=== PATIENT | female | born 2000 | race Two or more races ===

== ENCOUNTER 2024-01-27 18:05 | Inpatient (IN) | payer MEDICAID, OTHER ==
[~2024-01-27] VITALS: Ht 160 cm; Wt 56.7 kg
[2024-01-27 18:59] LABS: Basophils # (auto) 0 10 ^3/uL (0-0.2); Basophils % (auto) 0.7 % (0.0-2.0); Eosinophils # (auto) 0.1 10 ^3/uL (0-0.8); Hematocrit 40.4 % (36.0-46.0); Hemoglobin 13.6 g/dL (12.2-16.2); Lymphocytes # (auto) 2.7 10 ^3/uL (0.4-5.4); Lymphocytes % (auto) 44.1 % (10.0-50.0); Mean Corpuscular Hemoglobin 31.6 pg (28.0-32.0); Mean Corpuscular Hgb Conc. 33.7 g/dL (32.0-36.0); Mean Corpuscular Volume 93.8 fL (80.0-100.0); Monocytes # (auto) 0.4 10 ^3/uL (0-1.3); Monocytes % (auto) 6.5 % (0.0-12.0); Neutrophils # (auto) 2.9 10 ^3/uL (1.6-8.6); Neutrophils % (auto) 47.7 % (37.0-80.0); Platelet Count (auto) 245 10^3/uL (140-450); Red Blood Cells 4.31 10^6/uL (4.0-5.20); White Blood Cell 6.1 10^3/uL (4.4-10.8)
[2024-01-27 19:29] LABS: Chloride 108 mmol/L (98-107); Potassium 3.6 mmol/L (3.5-5.1); Sodium 139 mmol/L (136-145)
[2024-01-27 19:31] LABS: Anion Gap 8 (5-15); Calcium 9.8 mg/dL (8.7-10.4); Carbon Dioxide 23 mmol/L (20-31)
[2024-01-27 19:36] LABS: BUN/Creatinine Ratio 12.5 (10.0-20.0); Blood Urea Nitrogen 10 mg/dL (9-23); Glucose 93 mg/dL (74-106)
[2024-01-27 23:00] LABS: Urine Bacteria None Seen /hpf (None Seen)
[2024-01-27 23:13] LABS: Urine Blood Negative /uL (Negative); Urine Clarity Clear (Clear); Urine Color Light-Yellow (Yellow); Urine Mucus FEW (None Seen); Urine Protein, UAD Negative (Negative); Urine Specific Gravity 1.014 (1.001-1.035); Urine Urobilinogen Normal (Negative); Urine WBC 7 /hpf (0 - 5); Urine pH 5.5 (5.0-9.0)
[2024-01-28 07:06] LABS: Alanine Aminotransferase 11 U/L (7-40); Alkaline Phosphatase 55 U/L (46-116); Anion Gap 8 (5-15); BUN/Creatinine Ratio 15.2 (10.0-20.0); Blood Urea Nitrogen 12 mg/dL (9-23); Calcium 9.7 mg/dL (8.7-10.4); Carbon Dioxide 26 mmol/L (20-31); Chloride 109 mmol/L (98-107); Glucose 90 mg/dL (74-106); Sodium 143 mmol/L (136-145)
[2024-01-28 07:07] LABS: Albumin 4.3 g/dL (3.2-4.8); Aspartate Aminotransferase 14 U/L (13-40)
[2024-01-28 07:08] LABS: Bilirubin, Total 0.7 mg/dL (0.2-1.0); Total Protein 6.7 g/dL (5.7-8.2)
[2024-01-28 07:59] VITALS: PULSE 70; RESP 16; O2SAT 99
[2024-01-28 09:57] LABS: Amphetamine Screen, Urine Neg (NEGATIVE); Barbiturate Scree,Urine Neg (NEGATIVE); Benzodiazephine Screen, Urine Neg (NEGATIVE); Cannabinoid Screen, Urine Neg (NEGATIVE); Cocaine Screen, Urine Neg (NEGATIVE); Opiate Scree,Urine Neg (NEGATIVE); Phencyclidine Screen, Urine Neg (NEGATIVE)
[2024-01-28] MEDS: ACETAMINOPHEN 500 MG TAB PO PRN (12:10)
[2024-01-28] MEDS: MORPHINE SULFATE INJ 2 MG/ml SYRG IV PRN (12:12)
[2024-01-28] MEDS: SODIUM CHLORIDE 0.9% 500 ML IV ONE (14:08)
[2024-01-28 18:01] VITALS: BP 106/60; PULSE 85; TEMP 98.7; O2SAT 98
[2024-01-28 18:03] VITALS: PULSE 60; RESP 18; O2SAT 98
[2024-01-28 20:00] VITALS: PULSE 76; PULSE 96; RESP 18; O2SAT 97
[2024-01-28 21:00] VITALS: BP 102/62; PULSE 76; RESP 18; TEMP 98.1; O2SAT 97
[2024-01-29] VITALS (7 sets, daily range): BP systolic 104–111; BP diastolic 61–72; PULSE 71–85; RESP 12–18; TEMP 36.8; O2SAT 97–98
[2024-01-31 08:49] LABS: Hepatitis B Surface Antigen Negative (Negative)
[2024-01-31 09:11] LABS: Hepatitis C Antibody Negative (Negative)
[2024-01-31 10:21] LABS: Free T3 3.19 pg/mL (2.3-4.2)
[2024-01-31 10:22] LABS: Free T4 (Free Thyroxine) 1.12 ng/dL (0.89-1.76)
== END 2024-01-29 15:30 | disposition left against medical advice (07) | DRG 204 ==
LOC: ER 18:05 → TELE 01-28 06:06 → TELE-EAST 01-28 17:45
PROVIDERS: ADMIT Internal Medicine Geriatric Medicine; ATTEND Internal Medicine Geriatric Medicine
DX: R55 Syncope and collapse (principal); I73.00 Raynaud's syndrome without gangrene; J45.909 Unspecified asthma, uncomplicated; Z53.29 Procedure and treatment not carried out because of patient's decision for other reasons; Z90.49 Acquired absence of other specified parts of digestive tract; Z82.3 Family history of stroke; Z82.49 Family history of ischemic heart disease and other diseases of the circulatory system; Z83.3 Family history of diabetes mellitus
CPT/HCPCS: 36415; 70450; 71046; 80048; 80053; 80307; 81001; 81025; 83735; 84439; 84443; 84481; 84484; 85025; 85379; 86803; 87340; 93005; 93306; 93886; 96361; 96374; G0378